=== PATIENT | male | born 1950 | race African-American/Black ===

== ENCOUNTER 2018-10-22 22:17 | Emergency (ER) | payer MEDICARE, OTHER ==
[~2018-10-22] VITALS: Ht 177.8 cm; Wt 74.8 kg
[~2018-10-22 22:17] MED LIST: ALBUTEROL SULF8.5 GM INH; MORPHINE IR15 MG ORAL; MORPHINE SULFAT30 M9 PO; PROAIR HFA8.5 GM INH; TAGAMET400 MG ORAL; TEMAZEPAM15 MG ORAL
[2018-10-22] MEDS ORDERED: BACLOFEN5 MG PO (22:25)
--- NOTE | 2018-10-22 22:35 | NUR ---
ED Nurse Note: pt brought in by [facility] c/o constipation x 3days and pain on rectum, denies hemorroids, pt last bm was three days ago, formed, noted mild distended abd, active bs. pt afebrile, AA&ox4, gcs=15, skin warm and dry, resp even and unlabored, -n/v/d, ambulates w/ steady gait, will cont monitor. vss.
[2018-10-22] MEDS ORDERED: Fleet's Enema 133ml RECTAL ONE (22:45)
[2018-10-22 22:58] VITALS: BP 138/68
[2018-10-22] MEDS ORDERED: COLACE100 MG ORAL (23:15)
[2018-10-22 23:25] VITALS: BP 138/78
--- NOTE | 2018-10-22 23:32 | Emergency Room Report ---
History of Present Illness General Chief Complaint: Constipation Source: Patient Present Illness HPI Patient is a 68-year-old male who presented after increased constipation for approximately 3 days. Patient had prior history of chronic low back pain. He reports taking oral morphine regularly. Patient recently had his morphine interval him increased. Patient had prior history of COPD. He denies any fever or difficulty breathing. He denies any abdominal pain or increased low back pain. Patient is normally ambulatory without assistance. He denies any difficulty with urination. He denies any leg numbness or weakness. Allergies: Coded Allergies: ASPIRIN (Verified Adverse Reaction, Severe, Stomach upset , 12/21/15) Patient History Reviewed Nursing Documentation: PMH: Agreed; PSxH: Agreed Nursing Documentation-PMH Past Medical History: No History, Except For Hx Asthma: Yes Hx Gastrointestinal Problems: Yes - constipation, sciatica Hx Neurological Problems: Yes Review of Systems All Other Systems: limited Physical Exam Vital Signs Date Time Temp Pulse Resp B/P (MAP) Pulse Ox O2 Delivery O2 Flow Rate FiO2 10/22/18 22:22 97.9 100 16 128/82 98 Room Air Sp02 EP Interpretation: reviewed, normal General Appearance: normal inspection, alert, Chronically Ill Head: atraumatic ENT: normal ENT inspection, hearing grossly normal, normal voice Neck: normal inspection, full range of motion, supple, no bony tend Respiratory: normal inspection, normal breath sounds, no respiratory distress, no retraction, no wheezing Cardiovascular #1: regular rate, rhythm, no edema Gastrointestinal: normal inspection, normal bowel sounds, non tender, soft, no guarding, no hernia Genitourinary: no CVA tenderness Musculoskeletal: normal inspection, back normal, normal range of motion Neurologic: normal inspection, alert, oriented x3, responsive, 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 Differential diagnosis include was not limited to fecal impaction, opioid induced constipation, cauda equina syndrome, bowel obstruction among others. Patient has a benign exam and does not appear to require any laboratory testing at this time. KUB showed no evidence of acute bowel obstruction. Patient was given enema with production of large amount of stool. Patient said he felt better. Patient was given a prescription for stool softeners. Patient does not show any evidence for cauda equina syndrome at this time.Is able to urinate normally. Patient is noted to be ambulatory without assistance. He was advised to follow-up with his physician for further evaluation and reexamination. Patient is advised to return if he began having other concerning signs or symptoms. He was advised to increase the fiber in his diet . Last Vital Signs Date Time Temp Pulse Resp B/P (MAP) Pulse Ox O2 Delivery O2 Flow Rate FiO2 10/22/18 22:58 97.8 79 16 138/68 100 Room Air Status: improved Disposition: HOME, SELF-CARE Condition: Stable Scripts Docusate Sodium* (COLACE*) 100 Mg Capsule 100 MG ORAL TWICE A DAY, #30 CAP Prov: Etienne De La Torre MD 10/22/18 Referrals: RADHA LANGLEY MD (PCP) Patient Instructions: Constipation, Adult Additional Instructions: Follow up with your doctor as needed. Return if any concerns Etienne De La Torre MD Oct 22, 2018 23:32
--- NOTE | 2018-10-22 23:34 | NUR ---
ED Nurse Note: pt discharge instruction provided w/ prescription, pt education done via hand out and discussion, pt wrist band removed, pt verbalized understanding and agrees with plan, pt reports constipation is better after enema. pt advised to follow up with pcp, return to ed if s/s worsen or new s/s develop. pt had one bm in ed
--- NOTE | 2018-10-22 23:35 | NUR ---
ED Nurse Note: taxi voucher issued, house sup notified, pt ambulatory w/ steady gait, vss, afebrile, all belongings left w/ pt.
--- NOTE | 2018-10-23 12:08 | Diagnostic Imaging Report ---
Indication: Abdominal pain Comparison: None Single view of the abdomen obtained Findings: Bowel gas pattern is nonspecific. No mass, ectopic calcifications, or abnormal gas collections are identified. The bones are unremarkable. Impression: No acute findings
== END 2018-10-22 23:35 | disposition home or self-care (01) ==
LOC: EDBD 22:17 → EMR 22:27
DX: K59.00 Constipation, unspecified (principal); J45.909 Unspecified asthma, uncomplicated
CPT/HCPCS: 74018; 99283